=== PATIENT | female | born 1950 ===

== ENCOUNTER 2023-03-21 05:00 | Day surgery (SDC) | payer OTHER ==
[~2023-03-21 05:00] MED LIST: GRALISE600 MG PO; HYDROCHLOROTHIA25 MG PO; NAPROXEN500 MG PO; TOPROL XL25 M1 PO; ZESTRIL20 MG PO; ZOCOR40 MG PO
[2023-03-21] MEDS ORDERED: OXYC1TAB9 PO (08:20)
== END 2023-03-21 15:10 | disposition home or self-care (01) ==
LOC: CIR.AMB 05:00
PROVIDERS: ATTEND Surgery
DX: K64.8 Other hemorrhoids (principal); K64.4 Residual hemorrhoidal skin tags; K62.5 Hemorrhage of anus and rectum; K62.89 Other specified diseases of anus and rectum; Z20.822 Contact with and (suspected) exposure to COVID-19; I10 Essential (primary) hypertension